=== PATIENT | female | born 1950 | race Caucasian/White ===

== ENCOUNTER 2021-03-04 14:17 | Day surgery (SDC) | payer MEDICARE, BC ==
[2021-03-02 16:21] VITALS: BMI 23.0
[~2021-03-04 14:17] MED LIST: CIPROFLOXACIN/DEXTROSE PMX 400 MG in DEXTROSE/WATER 1 200ML.BAG IVPB PRN; DEXAMETHASONE SOD PHOSPHATE 4 MG/ML 1 ML VIAL IV ONE; GENTAMICIN 80 MG in SODIUM CHLORIDE 0.9% 100 ML IVPB PRN; HYDROmorphone 0.5 MG/0.5 ML SYRINGE IVP PRN; LACTATED RINGERS 1,000 ML IV SCH; MIDAZOLAM 2 MG/2 ML VIAL IV PRN; ONDANSETRON 4 MG/2 ML VIAL IVP ONE
--- NOTE | 2021-03-04 14:54 | XR ---
EXAMINATION TYPE: XR KUB DATE OF EXAM: 03/04/2021 COMPARISON: None HISTORY: Kidney stones TECHNIQUE: AP supine abdomen FINDINGS: Postsurgical changes are in the right upper quadrant. Nonspecific bowel gas is present. Pso as margins are normal. Organomegaly is not evident. Vertebroplasty is present at T11. There are coupl e of calcifications in the upper lateral pelvis bilaterally. Additional calcifications are not readil y apparent. IMPRESSION: 1. Nonspecific calcifications are within the lateral pelvis. 2. Mild fecal debris. 3. Nonspecific abdomen
[2021-03-04 15:15] LABS: HCT 38.4 % (34.0-46.0); MCH 35.3 pg (25.0-35.0); MCHC 36.5 g/dL (31.0-37.0); MCV 96.7 fL (80.0-100.0); Mean Platelet Volume 6.8; Platelet Count 289 k/uL (150-450); Poikilocytosis Slight; RBC 3.97 m/uL (3.80-5.40); RDW 15.5 % (11.5-15.5); WBC 10.3 k/uL (3.8-10.6)
[2021-03-04 15:49] LABS: Potassium 4.8 mmol/L (3.5-5.1)
--- NOTE | 2021-03-04 17:10 | P.HPIHPCON ---
History of Present Illness H&P Date: 03/04/21 Chief Complaint: right ureteral stone This is 71-year-old female history of a 5 mm right-sided proximal stone, multiple nonobstructing stone. She symptomatic from her stone, option of ESWL versus ureteroscopy were discussed with her. She went to proceed with right- sided ureteroscopy. Discussed the risk which includes but not limited to bleeding, infection, injury to ureter, she understood all the risk and agreed to proceed Consent for Procedure: I have explained the operation/procedure to the patient, including the risks, benefits, side effects, alternative therapies (including not receiving the proposed treatment or service), the likelihood of the patient achieving his/her goals, and potential recuperation problems for the procedure/sedation/analgesia, as well as any blood products, if indicated. I also explained to the patient the risks, benefits and side effects of the alternatives, as well as the risks related to not receiving the proposed procedure, care, treatment, or services. Past Medical History Past Medical History: GERD/Reflux, Hyperlipidemia, Rheumatoid Arthritis (RA) Additional Past Medical History / Comment(s): kidney stones, History of Any Multi-Drug Resistant Organisms: None Reported Past Surgical History: Cholecystectomy, Orthopedic Surgery Additional Past Surgical History / Comment(s): rt elbow with pins Past Anesthesia/Blood Transfusion Reactions: Motion Sickness, Postoperative Nausea & Vomiting (PONV) Additional Past Anesthesia/Blood Transfusion Reaction / Comment(s): nauseous after colonoscopies Smoking Status: Former smoker - Past Family History Mother Family Medical History: No Reported History Medications and Allergies Home Medications Medication Instructions Recorded Confirmed Type Cannabidiol (Cbd) [Epidiolex] 1 dose TOPICAL DAILY PRN 03/02/21 03/02/21 History Esomeprazole Magnesium [NexIUM] 40 mg PO DAILY 03/02/21 03/02/21 History Hydroxychloroquine Sulfate 200 mg PO BID 03/02/21 03/02/21 History [Plaquenil] Potassium Chloride 10 meq PO DAILY 03/02/21 03/02/21 History Prolia (Unknown Dose) 1 dose IM Q6M 03/02/21 History Rosuvastatin Calcium 5 mg PO HS 03/02/21 03/02/21 History hydroCHLOROthiazide [Hydrodiuril] 25 mg PO DAILY 03/02/21 03/02/21 History metHOTREXate sodium [Methotrexate] 6 tab PO MO 03/02/21 03/02/21 History Allergies Allergy/AdvReac Type Severity Reaction Status Date / Time Penicillins Allergy Rash/Hives Verified 03/02/21 16:09 Surgical - Exam Vital Signs Temp Pulse Resp BP Pulse Ox 98.3 F 90 17 160/74 100 03/04/21 15:02 03/04/21 15:02 03/04/21 15:02 03/04/21 15:02 03/04/21 15:02 Results - Labs 03/04/21 15:07 03/04/21 15:07 Abnormal Lab Results - Last 24 Hours (Table) 03/04/21 03/04/21 Range/Units 15:07 15:07 MCH 35.3 H (25.0-35.0) pg Sodium 135 L (137-145) mmol/L BUN 23 H (7-17) mg/dL Diabetes panel 03/04/21 Range/Units 15:07 Sodium 135 L (137-145) mmol/L Potassium 4.8 (3.5-5.1) mmol/L Chloride 102 (98-107) mmol/L Carbon Dioxide 23 (22-30) mmol/L BUN 23 H (7-17) mg/dL Creatinine 0.81 (0.52-1.04) mg/dL Glucose 99 (74-99) mg/dL Calcium 9.0 (8.4-10.2) mg/dL Calcium panel 03/04/21 Range/Units 15:07 Calcium 9.0 (8.4-10.2) mg/dL Pituitary panel 03/04/21 Range/Units 15:07 Sodium 135 L (137-145) mmol/L Potassium 4.8 (3.5-5.1) mmol/L Chloride 102 (98-107) mmol/L Carbon Dioxide 23 (22-30) mmol/L BUN 23 H (7-17) mg/dL Creatinine 0.81 (0.52-1.04) mg/dL Glucose 99 (74-99) mg/dL Calcium 9.0 (8.4-10.2) mg/dL Adrenal panel 03/04/21 Range/Units 15:07 Sodium 135 L (137-145) mmol/L Potassium 4.8 (3.5-5.1) mmol/L Chloride 102 (98-107) mmol/L Carbon Dioxide 23 (22-30) mmol/L BUN 23 H (7-17) mg/dL Creatinine 0.81 (0.52-1.04) mg/dL Glucose 99 (74-99) mg/dL Calcium 9.0 (8.4-10.2) mg/dL
[2021-03-04] MEDS ORDERED: MIDAZOLAM 2 MG/2 ML VIAL ONE (17:30)
[2021-03-04] MEDS ORDERED: LIDOCAINE 1% INJ 10MG/ML (20 ML MDV) ONE (17:30)
[2021-03-04] MEDS ORDERED: PROPOFOL 10 MG/ML 20 ML VIAL IV ONE (17:30)
[2021-03-04] MEDS ORDERED: fentaNYL (PF) 50 MCG/ML 2 ML AMP ONE (17:30)
[2021-03-04] MEDS ORDERED: IOPAMIDOL-370 50ML BTL IRRIGATION ONE (17:59)
--- NOTE | 2021-03-04 18:34 | P.OP ---
Date of Procedure: 03/04/21 Preoperative Diagnosis: Right-sided renal, ureteral stone Postoperative Diagnosis: Same Procedure(s) Performed: Cystoscopy, right ureteroscopy, holmium laser lithotripsy, stone basketing and stent insertion Implants: None Anesthesia: ZAHRAA Surgeon: David Plaza Estimated Blood Loss (ml): 1 Pathology: other (right ureteral stne) Condition: stable Disposition: PACU Indications for Procedure: This is 71-year-old female history of a 5 mm right-sided proximal stone, multiple nonobstructing stone. She symptomatic from her stone, option of ESWL versus ureteroscopy were discussed with her. She went to proceed with right- sided ureteroscopy. Discussed the risk which includes but not limited to bleeding, infection, injury to ureter, she understood all the risk and agreed to proceed Operative Findings: Right-sided proximal stone, additional stone in the upper pole, an additional stone in the lower pole Description of Procedure: Patient was brought to the operating room, general anesthesia was induced. She was prepped and draped in sterile fashion and placed in dorsal lithotomy position. Cystoscopy fitted with a 21-Occitan sheath was inserted per urethra, cystoscopy was performed which showed no abnormality within the bladder. Attention was then carried to the right ureteral orifice which was intubated with an open-ended catheter, retrograde pyelogram was performed which showed filling defect in the proximal ureter with mild hydronephrosis. At this time a semirigid ureteroscope was inserted and advanced up to the proximal ureter, the stone was visualized at the proximal ureter , but a good angle of the obtained to fragment the stone. At this time a wire was advanced through the semirigid ureteroscope and the semirigid ureteroscope was withdrawn with the wire in place. Next a ureteral access sheath was passed over the wire under fluoroscopy into the proximal ureter. The flexible ureteroscope was inserted through the access sheath, the proximal ureteral stone was fragmented using the holmium laser, stone fragments were removed using stone basket. 2 additional stones were seen within the upper and one in the lower pole that were fragmented and removed using the stone basket. Repeat renoscopy showed no sizable fragments or injury to the kidney. Pullback ureteroscopy was performed showed no evidence of ureteral edema or injury to the ureter, thus a stent was not placed. The bladder was emptied at the end of the case. Patient tolerated procedure well was taken to PACU in stable condition
[2021-03-04 18:40] VITALS: RESP 16; TEMP 98
[2021-03-04] MEDS ORDERED: ONDANSETRON 4 MG/2 ML VIAL ONE (19:32)
[2021-03-04] MEDS ORDERED: ONDANSETRON 4 MG/2 ML VIAL IVP ONE (19:36)
[2021-03-04] MEDS ORDERED: DEXAMETHASONE SOD PHOSPHATE 4 MG/ML 1 ML VIAL IVP ONE (20:45)
[2021-03-04] MEDS ORDERED: SCOPOLAMINE 1.5MG/72HR PATCH TRANSDERM ONE (20:45)
[2021-03-04] MEDS ORDERED: KETOROLAC 15 MG/ML 1 ML VIAL IVP ONE (20:45)
[2021-03-04] MEDS ORDERED: KETOROLAC 15 MG/ML 1 ML VIAL ONE (20:46)
[2021-03-04 20:58] VITALS: BP 140/66; PULSE 86
--- NOTE | 2021-03-05 09:19 | FL ---
Fluoroscopy History: R RENAL CALC 26 sec fl .
== END 2021-03-04 21:18 | disposition home or self-care (01) ==
LOC: OR 14:17
PROVIDERS: ATTEND Urology
DX: N20.2 Calculus of kidney with calculus of ureter (principal); E78.5 Hyperlipidemia, unspecified; M06.9 Rheumatoid arthritis, unspecified; K21.9 Gastro-esophageal reflux disease without esophagitis; Z79.899 Other long term (current) drug therapy
CPT/HCPCS: 52356; 80048; 85027; 82365; 74018; C1758; C1769; J2250; J1100; J2405; J2001; J3010; J0744; J1580; J1885; J2704; J1170; Q9967

== ENCOUNTER 2022-01-19 05:58 | Emergency (ER) | payer MEDICARE, BC ==
[2022-01-19] MEDS ORDERED: HYDROmorphone 0.5 MG/0.5 ML SYRINGE IVP STA (06:23)
[2022-01-19] MEDS ORDERED: SODIUM CHLORIDE 0.9% 1,000 ML IV STA (06:23)
[2022-01-19] MEDS ORDERED: ONDANSETRON 4 MG/2 ML VIAL IVP STA (06:23)
[2022-01-19] MEDS ORDERED: KETOROLAC 15 MG/ML 1 ML VIAL IVP STA (06:23)
--- NOTE | 2022-01-19 06:40 | ED ---
Abdominal Pain HPI - General Chief Complaint: Abdominal Pain Stated Complaint: Abd Pain Time Seen by Provider: 01/19/22 06:14 Source: patient, family, RN notes reviewed Mode of arrival: wheelchair Limitations: no limitations - History of Present Illness Initial Comments: This is a 71-year-old female who presents to the emergency department for abdominal pain. She was hospitalized from 01/08 through 01/10 in [place] for diverticulitis. She was discharged on a ten-day course of Cipro and Flagyl, which she is scheduled to finish tomorrow. She does currently live in [place], but has a cottage in [place], which is why she is here. States th at ever since she left, she never gotten fully better. She continues to have RLQ abdominal pain, nausea, vomiting, and chills. Her stools are described as loose, however she is not having what she would consider diarrhea. CT abd/pelvis 01/08 - acute sigmoid diverticulitis with a 1.7cm focus of air along the superior margin of the inflamed sigmoid colon in right presacral region. Air in distended diverticulum vs contained perforation. No drainable fluid collection. Denies any sore throat, cough, dyspnea, chest pain, palpitations, diarrhea, back pain, or headaches. MD Complaint: abdominal pain Onset/Timin -: days(s) Location: LLQ, RLQ Context: other (diverticulitis) Associated Symptoms: nausea, vomiting, chills - Related Data Home Medications Medication Instructions Recorded Confirmed Cannabidiol (Cbd) [Epidiolex] 1 dose TOPICAL DAILY PRN 03/02/21 03/02/21 Esomeprazole Magnesium [NexIUM] 40 mg PO DAILY 03/02/21 03/02/21 Hydroxychloroquine Sulfate 200 mg PO BID 03/02/21 03/02/21 [Plaquenil] Potassium Chloride 10 meq PO DAILY 03/02/21 03/02/21 Prolia (Unknown Dose) 1 dose IM Q6M 03/02/21 Rosuvastatin Calcium 5 mg PO HS 03/02/21 03/02/21 hydroCHLOROthiazide [Hydrodiuril] 25 mg PO DAILY 03/02/21 03/02/21 metHOTREXate sodium [Methotrexate] 6 tab PO MO 03/02/21 03/02/21 Previous Rx's Medication Instructions Recorded Ibuprofen 600 mg PO Q8H PRN #20 tab 03/04/21 Ondansetron Odt [Zofran Odt] 4 mg PO Q8HR PRN #20 tab 01/19/22 Potassium Chloride [Potassium 20 meq PO QAM 3 Days #6 tab 01/19/22 Chloride ER] Allergies Allergy/AdvReac Type Severity Reaction Status Date / Time Penicillins Allergy Rash/Hives Verified 01/19/22 06:05 Review of Systems ROS Statement: Those systems with pertinent positive or pertinent negative responses have been documented in the HPI. ROS Other: All systems not noted in ROS Statement are negative. Past Medical History Past Medical History: GERD/Reflux, Hyperlipidemia, Rheumatoid Arthritis (RA) Additional Past Medical History / Comment(s): kidney stones, diverticulitis History of Any Multi-Drug Resistant Organisms: None Reported Past Surgical History: Cholecystectomy, Orthopedic Surgery Additional Past Surgical History / Comment(s): rt elbow with pins Past Anesthesia/Blood Transfusion Reactions: Motion Sickness, Postoperative Nausea & Vomiting (PONV) Additional Past Anesthesia/Blood Transfusion Reaction / Comment(s): nauseous after colonoscopies Past Psychological History: No Psychological Hx Reported Smoking Status: Former smoker Past Alcohol Use History: None Reported Past Drug Use History: None Reported - Past Family History Mother Family Medical History: No Reported History General Exam Limitations: no limitations General appearance: alert, in distress Head exam: Present: atraumatic, normocephalic, normal inspection Respiratory exam: Present: normal lung sounds bilaterally. Absent: respiratory distress, wheezes, rales, rhonchi, stridor Cardiovascular Exam: Present: regular rate, normal rhythm, normal heart sounds. Absent: systolic murmur, diastolic murmur, rubs, gallop, clicks GI/Abdominal exam: Present: soft, tenderness (LLQ and RLQ), hyperactive bowel sounds. Absent: distended, guarding, rebound, rigid Neurological exam: Present: alert, oriented X3, CN II-XII intact Psychiatric exam: Present: normal affect, normal mood Skin exam: Present: warm, dry, intact, normal color. Absent: rash Course Vital Signs 01/19/22 01/19/22 01/19/22 06:05 08:33 08:45 Temperature 97.2 F L Pulse Rate 106 H 89 Respiratory 16 18 Rate Blood Pressure 115/57 105/65 O2 Sat by Pulse 98 94 L Oximetry Medical Decision Making - Medical Decision Making This is a 71-year-old female who presents to the emergency department for diverticulitis. Patient brought in her records from the prior hospitalization in [place], which were thoroughly reviewed. Repeat lab work reveals that the previous leukocytosis has resolved. Lab work is consistent with dehydration, she was given a liter bolus of normal saline. Potassium was also low at 2.8, and she was given 40 mEq of K-dur. Computed tomography scan of the abdomen and pelvis reveals improving acute uncomplicated sigmoid diverticulitis when compared with prior scan from 01/08. Shared decision-making to place with the patient. We discussed that given her dehydration and hypokalemia, we can admit her for observation and rehydration. However, if she feels like she is better, we can discharge her home. Patient states that she feels significantly improved and requests discharge home. Prescription for Zofran sent to the pharmacy as well as 3 days worth of potassium. Advised that she remain very well-hydrated and increase her fiber intake. She'll follow up with gastroenterology as advised when she returns to [place]. Strict return parameters discussed. Return precautions reviewed in depth, the patient is instructed to return to the emergency department with any new, worsening, or concerning symptoms. Patient verbalized understanding. This case was discussed in detail with the attending ED physician. Presentation, findings, and treatment plan discussed in detail as well. - Lab Data Result diagrams: 01/19/22 06:38 01/19/22 06:38 Lab Results 01/19/22 01/19/22 01/19/22 Range/Units 06:38 06:38 06:38 WBC 10.2 (3.8-10.6) k/uL RBC 4.30 (3.80-5.40) m/uL Hgb 13.8 (11.4-16.0) gm/dL Hct 40.7 (34.0-46.0) % MCV 94.6 (80.0-100.0) fL MCH 32.1 (25.0-35.0) pg MCHC 33.9 (31.0-37.0) g/dL RDW 14.5 (11.5-15.5) % Plt Count 353 (150-450) k/uL MPV 7.0 Neutrophils % 76 % Lymphocytes % 16 % Monocytes % 5 % Eosinophils % 1 % Basophils % 1 % Neutrophils # 7.7 (1.3-7.7) k/uL Lymphocytes # 1.6 (1.0-4.8) k/uL Monocytes # 0.5 (0-1.0) k/uL Eosinophils # 0.1 (0-0.7) k/uL Basophils # 0.1 (0-0.2) k/uL Sodium 129 L (137-145) mmol/L Potassium 2.8 L (3.5-5.1) mmol/L Chloride 95 L (98-107) mmol/L Carbon Dioxide 26 (22-30) mmol/L Anion Gap 8 mmol/L BUN 23 H (7-17) mg/dL Creatinine 0.79 (0.52-1.04) mg/dL Est GFR (CKD-EPI)AfAm 88 (>60 ml/min/1.73 sqM) Est GFR (CKD-EPI)NonAf 76 (>60 ml/min/1.73 sqM) Glucose 138 H (74-99) mg/dL Plasma Lactic Acid Harjinder 2.1 H* (0.7-2.0) mmol/L Calcium 8.9 (8.4-10.2) mg/dL Total Bilirubin 0.8 (0.2-1.3) mg/dL AST 33 (14-36) U/L ALT 45 H (4-34) U/L Alkaline Phosphatase 50 (38-126) U/L Total Protein 5.6 L (6.3-8.2) g/dL Albumin 3.4 L (3.5-5.0) g/dL Amylase 75 (30-110) U/L Lipase 121 (23-300) U/L - Radiology Data Radiology results: report reviewed, image reviewed Disposition Clinical Impression: Diverticulitis, Dehydration Disposition: HOME SELF-CARE Instructions (If sedation given, give patient instructions): Diverticulitis (ED) Additional Instructions: Return to the emergency department with any new, worsening, or concerning symptoms. Make sure that you remain well-hydrated. Take the Zofran up to every 8 hours as needed for nausea and vomiting and take the potassium each day for 3 days. Prescriptions: Potassium Chloride [Potassium Chloride ER] 20 meq PO QAM 3 Days #6 tab Ondansetron Odt [Zofran Odt] 4 mg PO Q8HR PRN #20 tab PRN Reason: Nausea And Vomiting Is patient prescribed a controlled substance at d/c from ED?: No Referrals: Bruno Fry MD [Primary Care Provider] - 1-2 days
[2022-01-19 06:57] LABS: Basophils # (A) 0.1 k/uL (0-0.2); Basophils % (A) 1 %; Eosinophils # (A) 0.1 k/uL (0-0.7); Eosinophils % (A) 1 %; HCT 40.7 % (34.0-46.0); HGB 13.8 gm/dL (11.4-16.0); Lymphocytes # (A) 1.6 k/uL (1.0-4.8); Lymphocytes % (A) 16 %; MCH 32.1 pg (25.0-35.0); MCHC 33.9 g/dL (31.0-37.0); MCV 94.6 fL (80.0-100.0); Monocytes # (A) 0.5 k/uL (0-1.0); Monocytes % (A) 5 %; Neutrophils # (A) 7.7 k/uL (1.3-7.7); Neutrophils % (A) 76 %; Platelet Count 353 k/uL (150-450); RDW 14.5 % (11.5-15.5); WBC 10.2 k/uL (3.8-10.6)
[2022-01-19 07:10] LABS: Albumin 3.4 g/dL (3.5-5.0); Calcium 8.9 mg/dL (8.4-10.2); Potassium 2.8 mmol/L (3.5-5.1); Total Bilirubin 0.8 mg/dL (0.2-1.3); Total Protein 5.6 g/dL (6.3-8.2)
[2022-01-19] MEDS ORDERED: POTASSIUM CHLORIDE ER 20 MEQ TAB.ER PO STA (07:12)
--- NOTE | 2022-01-19 08:13 | CT ---
EXAMINATION TYPE: CT abdomen pelvis w con CT DLP: 730.7 mGycm, Automated exposure control for dose reduction was used. DATE OF EXAM: 01/19/2022 7:47 AM COMPARISON: 01/08/2022. CLINICAL INDICATION:Female, 71 years old with history of Worsening LLQ abdominal pain, known divertic ulitis; Worsening LLQ pain, known diverticulitis TECHNIQUE: Axial CT of the abdomen and pelvis . Sagittal and coronal reformats were created on a [employer] workstation. Contrast used:100 ml mL of Isovue 300 with IV Contrast, Oral contrast used: without Oral Contrast FINDINGS: LOWER CHEST: Small hiatal hernia. ABDOMEN LIVER: Diffusely hypoattenuating parenchyma. GALLBLADDER AND BILE DUCTS: The gallbladder is surgically absent. PANCREAS: Unremarkable. SPLEEN: Unremarkable. ADRENAL GLANDS: Unremarkable. KIDNEYS AND URETERS: No evidence of hydronephrosis or renal calculus. The ureters are unremarkable. PELVIS BLADDER: Unremarkable REPRODUCTIVE: Unremarkable. ABDOMEN & PELVIS STOMACH AND BOWEL: Moderate stool burden throughout the colon. There are few scattered clonic diverti cula with inflammatory changes best appreciated in the low abdomen around diverticula on the right. F ocus of gas within the posterior right pelvis could represent free air versus dilated diverticula. Th is is not significantly changed from prior on 01/08/2022 infiltrate was dilated diverticula. No organi zing fluid collections identified. No evidence of bowel obstruction. PERITONEUM: No evidence of pneumoperitoneum or free fluid. VASCULATURE: Mild atherosclerotic calcifications are present throughout the abdominal aorta and its b ranches. No evidence of aortic aneurysm. MUSCULOSKELETAL: No acute osseous abnormalities. Mild disc degeneration changes are present throughou t the thoracolumbar spine. Multiple remote appearing right rib fractures. LYMPH NODES: No gross evidence for lymphadenopathy. SOFT TISSUE/ABDOMINAL WALL: Unremarkable IMPRESSION: 1. Improving uncomplicated sigmoid colon diverticulitis when compared to prior from outside instituti on 01/08/2022. No evidence of organizing fluid collection. 2. Hepatic steatosis. 3. Small hiatal hernia.
[2022-01-19] MEDS ORDERED: ONDANSETRON 4 MG ODT STARTER PACK 2 TAB BTL PO STA (08:32)
[2022-01-19 08:36] VITALS: BP 105/65; PULSE 89; RESP 18
[2022-01-19 08:46] VITALS: TEMP 97.2
== END 2022-01-19 08:46 | disposition home or self-care (01) ==
LOC: EC 05:58
DX: K57.32 Diverticulitis of large intestine without perforation or abscess without bleeding (principal); E86.0 Dehydration; K21.9 Gastro-esophageal reflux disease without esophagitis; E78.5 Hyperlipidemia, unspecified; M06.9 Rheumatoid arthritis, unspecified; Z87.891 Personal history of nicotine dependence; Z88.0 Allergy status to penicillin; Z79.899 Other long term (current) drug therapy
CPT/HCPCS: 36415; 80053; 82150; 83605; 83690; 85025; 74177; 99284; 96374; 96375; 96361; J2405; J1885; S0119; J1170; Q9967

== ENCOUNTER 2022-02-03 22:46 | Observation (INO) | payer MEDICARE, BC ==
[2022-02-04] MEDS ORDERED: MORPHINE SULFATE 4 MG/ML SYRINGE IV STA (01:04)
[2022-02-04] MEDS ORDERED: SODIUM CHLORIDE 0.9% 500 ML 500 ML IV STA (01:05)
[2022-02-04 01:42] LABS: Basophils % (A) 0 %; Eosinophils # (A) 0.1 k/uL (0-0.7); Eosinophils % (A) 1 %; HCT 35.6 % (34.0-46.0); Lymphocytes # (A) 1.8 k/uL (1.0-4.8); Lymphocytes % (A) 23 %; MCHC 33.6 g/dL (31.0-37.0); MCV 95.2 fL (80.0-100.0); Mean Platelet Volume 7.1; Monocytes # (A) 0.5 k/uL (0-1.0); Monocytes % (A) 6 %; Neutrophils # (A) 5.3 k/uL (1.3-7.7); Neutrophils % (A) 67 %; Platelet Count 291 k/uL (150-450); RBC 3.74 m/uL (3.80-5.40); RDW 14.5 % (11.5-15.5); WBC 7.9 k/uL (3.8-10.6)
[2022-02-04 01:51] LABS: ALT 37 U/L (4-34); AST 32 U/L (14-36); African American GFR (CKD) >90 (>60 ml/min/1.73 sqM); Albumin 3.4 g/dL (3.5-5.0); Alkaline Phosphatase 40 U/L (38-126); Amylase 59 U/L (30-110); Anion Gap 6 mmol/L; Blood Urea Nitrogen 38 mg/dL (7-17); Calcium 8.6 mg/dL (8.4-10.2); Carbon Dioxide 26 mmol/L (22-30); Chloride 100 mmol/L (98-107); Glucose 118 mg/dL (74-99); Lipase 86 U/L (23-300); Non-African American GFR(CKD) >90 (>60 ml/min/1.73 sqM); Potassium 2.8 mmol/L (3.5-5.1); Sodium 132 mmol/L (137-145); Total Bilirubin 0.2 mg/dL (0.2-1.3); Total Protein 5.6 g/dL (6.3-8.2)
[2022-02-04 02:35] LABS: Appearance,Urine Clear (Clear); Bilirubin,Urine Negative (Negative); Blood,Urine Negative (Negative); Color,Urine Light Yellow; Glucose,Urine (UA) Negative (Negative); Hyaline Casts,Urine 3 /lpf (0-2); Ketones,Urine Negative (Negative); Leukocyte Esterase,Urine Small (Negative); Mucus,Urine Rare /hpf; Nitrite,Urine Negative (Negative); Protein,Urine Negative (Negative); RBC,Urine <1 /hpf (0-5); Specific Gravity,Urine 1.011 (1.001-1.035); Squamous Epithelial Cell,Urine <1 /hpf (0-4); Urobilinogen,Urine <2.0 mg/dL (<2.0); WBC,Urine 2 /hpf (0-5)
--- NOTE | 2022-02-04 03:16 | CT ---
EXAMINATION TYPE: CT abdomen pelvis w con DATE OF EXAM: 02/04/2022 COMPARISON: 01/19/2022 HISTORY: RLQ pain CT DLP: 692.9 mGycm Automated exposure control for dose reduction was used. CONTRAST: Performed with IV Contrast, patient injected with 100 mL of Isovue 300. Images obtained from the diaphragm to the floor the pelvis with the IV contrast. The lung bases are clear. No pleural effusion. Heart size is normal. No pericardial effusion. There i s small hiatal hernia. Stomach is intact. Liver spleen pancreas appear intact. The bowel gas or not d ilated. Gallbladder appears absent. There is no adrenal mass. Kidneys show satisfactory contrast opacification. There is no hydronephrosi s. Ureters are not dilated. There is no retroperitoneal adenopathy. Bladder distends smoothly. There is no inguinal hernia. No free fluid in the pelvis. There is no mesenteric edema. No ascites or free air. There is no bowel obstruction. There are multip le sigmoid diverticula. No diverticulitis. Appendix appears normal. The lumbar vertebrae have normal alignment. There is depression of the superior endplates of L4 and L 3 L2 L1 T12 T11 T10. There is T9 and T8 anterior wedging. There is vertebroplasty at T11 and T10 and T9. The bony pelvis is intact. The hip joints are intact. IMPRESSION: Extensive colonic diverticulosis without diverticulitis. Normal appendix. No bowel obstruction. No re nal mass or obstruction. No adverse change compared to old exam.
[2022-02-04] MEDS ORDERED: ONDANSETRON 4 MG/2 ML VIAL IVP PRN (05:12)
[2022-02-04] MEDS ORDERED: ACETAMINOPHEN TAB 325 MG TAB PO PRN (05:12)
[2022-02-04] MEDS ORDERED: MORPHINE SULFATE 4 MG/ML SYRINGE IV PRN (05:12)
[2022-02-04] MEDS ORDERED: NALOXONE 0.4 MG/ML 1 ML VIAL IV PRN (05:12)
--- NOTE | 2022-02-04 07:39 | ED ---
Abdominal Pain HPI - General Chief Complaint: Abdominal Pain Stated Complaint: lower right abd pain; hx of diverticulitis Time Seen by Provider: 02/03/22 23:53 Source: patient, family Mode of arrival: ambulatory - History of Present Illness Initial Comments: This patient is 72-year-old woman who states she has history of diverticulitis who presents with complaint of right upper quadrant pain that she states is very similar to previous episode of diverticulitis. She states that approximately a month ago she was in [facility] and she had pain, was told she had diverticulitis, and states she was in the hospital on antibiotics. She returns to [place] 3 weeks ago. The pain is been going on for over a week. The patient had been seen here, and was told she has diverticulitis. She states she was given course of antibiotics. The patient states that the pain recurred about 4 days ago. She actually saw her primary physician Dr. Fry who saw her and told her if the pain had not improved or if it was any worse she should see the ER. She states that the pain did continue to worsen so she comes here to be seen. She has not noted fever or chills. No vomiting or diarrhea. She has not noted change in bowel movements or urination. MD Complaint: abdominal pain -: days(s) Location: RUQ Radiation: none Migration to: no migration Severity: moderate Quality: cramping, aching Consistency: constant Improves With: nothing Worsens With: nothing Associated Symptoms: denies other symptoms - Related Data Home Medications Medication Instructions Recorded Confirmed Hydroxychloroquine Sulfate 200 mg PO BID 03/02/21 02/04/22 [Plaquenil] Rosuvastatin Calcium 5 mg PO HS 03/02/21 02/04/22 metHOTREXate sodium [Methotrexate] 15 mg PO MO 03/02/21 02/04/22 Ibuprofen [Motrin Ib] 400 mg PO Q8H PRN 02/04/22 02/04/22 hydroCHLOROthiazide [Hydrodiuril] 25 mg PO DAILY 02/04/22 02/04/22 Previous Rx's Medication Instructions Recorded Ondansetron Odt [Zofran ODT] 4 mg PO Q8HR PRN #20 tab 01/19/22 Acetaminophen Tab [Tylenol] 650 mg PO Q6HR PRN #30 tab 02/05/22 Dicyclomine [Bentyl] 20 mg PO TID PRN #20 tab 02/05/22 Famotidine [Pepcid] 20 mg PO BID #60 tab 02/05/22 Levofloxacin [Levaquin] 750 mg PO DAILY #7 tab 02/05/22 Allergies Allergy/AdvReac Type Severity Reaction Status Date / Time Penicillins Allergy Rash/Hives Verified 02/04/22 13:24 Review of Systems ROS Statement: Those systems with pertinent positive or pertinent negative responses have been documented in the HPI. ROS Other: All systems not noted in ROS Statement are negative. Constitutional: Denies: fever, chills Respiratory: Denies: cough, dyspnea Cardiovascular: Denies: chest pain, palpitations Gastrointestinal: Reports: abdominal pain. Denies: nausea, vomiting, diarrhea, melena, hematochezia Genitourinary: Denies: dysuria, hematuria Musculoskeletal: Denies: back pain Skin: Denies: rash Neurological: Denies: headache, weakness Past Medical History Past Medical History: GERD/Reflux, Hyperlipidemia, Rheumatoid Arthritis (RA) Additional Past Medical History / Comment(s): kidney stones, diverticulitis History of Any Multi-Drug Resistant Organisms: None Reported Past Surgical History: Cholecystectomy, Orthopedic Surgery Additional Past Surgical History / Comment(s): rt elbow with pins Past Anesthesia/Blood Transfusion Reactions: Motion Sickness, Postoperative Nausea & Vomiting (PONV) Additional Past Anesthesia/Blood Transfusion Reaction / Comment(s): nauseous after colonoscopies Past Psychological History: No Psychological Hx Reported Smoking Status: Former smoker Past Alcohol Use History: None Reported Past Drug Use History: None Reported - Past Family History Mother Family Medical History: No Reported History General Exam General appearance: alert, in no apparent distress Head exam: Present: atraumatic, normocephalic Eye exam: Present: normal appearance. Absent: scleral icterus, conjunctival injection Neck exam: Present: normal inspection Respiratory exam: Present: normal lung sounds bilaterally. Absent: respiratory distress, wheezes, rales, rhonchi, stridor Cardiovascular Exam: Present: regular rate, normal rhythm, normal heart sounds. Absent: systolic murmur, diastolic murmur, rubs, gallop GI/Abdominal exam: Present: soft. Absent: distended, tenderness, guarding, rebound, rigid, mass, pulsatile mass, hernia Extremities exam: Present: normal inspection, normal capillary refill. Absent: pedal edema, calf tenderness Back exam: Present: normal inspection. Absent: CVA tenderness (R), CVA tenderness (L) Neurological exam: Present: alert Psychiatric exam: Present: normal affect Skin exam: Present: warm, dry, intact, normal color. Absent: rash Course Vital Signs 02/03/22 02/04/22 02/04/22 23:37 02:10 03:21 Temperature 97.6 F Pulse Rate 98 84 Pulse Rate [ Pulse Oximetery ] Respiratory 18 16 16 Rate Blood Pressure 118/70 129/65 124/65 Blood Pressure [Right Arm] O2 Sat by Pulse 98 97 Oximetry 02/04/22 02/04/22 06:32 08:00 Temperature 98.9 F 97.6 F Pulse Rate 85 Pulse Rate [ 106 H Pulse Oximetery ] Respiratory 14 16 Rate Blood Pressure 107/55 Blood Pressure 153/77 [Right Arm] O2 Sat by Pulse 94 L 96 Oximetry Medical Decision Making - Lab Data Result diagrams: 02/05/22 13:07 02/05/22 13:07 Lab Results 02/04/22 02/04/22 02/04/22 Range/Units 01:27 01:27 01:27 WBC 7.9 (3.8-10.6) k/uL RBC 3.74 L (3.80-5.40) m/uL Hgb 12.0 (11.4-16.0) gm/dL Hct 35.6 (34.0-46.0) % MCV 95.2 (80.0-100.0) fL MCH 32.0 (25.0-35.0) pg MCHC 33.6 (31.0-37.0) g/dL RDW 14.5 (11.5-15.5) % Plt Count 291 (150-450) k/uL MPV 7.1 Neutrophils % 67 % Lymphocytes % 23 % Monocytes % 6 % Eosinophils % 1 % Basophils % 0 % Neutrophils # 5.3 (1.3-7.7) k/uL Lymphocytes # 1.8 (1.0-4.8) k/uL Monocytes # 0.5 (0-1.0) k/uL Eosinophils # 0.1 (0-0.7) k/uL Basophils # 0.0 (0-0.2) k/uL Sodium 132 L (137-145) mmol/L Potassium 2.8 L (3.5-5.1) mmol/L Chloride 100 (98-107) mmol/L Carbon Dioxide 26 (22-30) mmol/L Anion Gap 6 mmol/L BUN 38 H (7-17) mg/dL Creatinine 0.58 (0.52-1.04) mg/dL Est GFR (CKD-EPI)AfAm >90 (>60 ml/min/1.73 sqM) Est GFR (CKD-EPI)NonAf >90 (>60 ml/min/1.73 sqM) Glucose 118 H (74-99) mg/dL Plasma Lactic Acid Harjinder 1.0 (0.7-2.0) mmol/L Calcium 8.6 (8.4-10.2) mg/dL Total Bilirubin 0.2 (0.2-1.3) mg/dL AST 32 (14-36) U/L ALT 37 H (4-34) U/L Alkaline Phosphatase 40 (38-126) U/L Troponin I (0.000-0.034) ng/mL Total Protein 5.6 L (6.3-8.2) g/dL Albumin 3.4 L (3.5-5.0) g/dL Amylase 59 (30-110) U/L Lipase 86 (23-300) U/L Urine Color Urine Appearance (Clear) Urine pH (5.0-8.0) Ur Specific Martelle (1.001-1.035) Urine Protein (Negative) Urine Glucose (UA) (Negative) Urine Ketones (Negative) Urine Blood (Negative) Urine Nitrite (Negative) Urine Bilirubin (Negative) Urine Urobilinogen (<2.0) mg/dL Ur Leukocyte Esterase (Negative) Urine RBC (0-5) /hpf Urine WBC (0-5) /hpf Ur Squamous Epith Cells (0-4) /hpf Hyaline Casts (0-2) /lpf Urine Mucus (None) /hpf 02/04/22 02/04/22 Range/Units 01:27 02:15 WBC (3.8-10.6) k/uL RBC (3.80-5.40) m/uL Hgb (11.4-16.0) gm/dL Hct (34.0-46.0) % MCV (80.0-100.0) fL MCH (25.0-35.0) pg MCHC (31.0-37.0) g/dL RDW (11.5-15.5) % Plt Count (150-450) k/uL MPV Neutrophils % % Lymphocytes % % Monocytes % % Eosinophils % % Basophils % % Neutrophils # (1.3-7.7) k/uL Lymphocytes # (1.0-4.8) k/uL Monocytes # (0-1.0) k/uL Eosinophils # (0-0.7) k/uL Basophils # (0-0.2) k/uL Sodium (137-145) mmol/L Potassium (3.5-5.1) mmol/L Chloride (98-107) mmol/L Carbon Dioxide (22-30) mmol/L Anion Gap mmol/L BUN (7-17) mg/dL Creatinine (0.52-1.04) mg/dL Est GFR (CKD-EPI)AfAm (>60 ml/min/1.73 sqM) Est GFR (CKD-EPI)NonAf (>60 ml/min/1.73 sqM) Glucose (74-99) mg/dL Plasma Lactic Acid Harjinder (0.7-2.0) mmol/L Calcium (8.4-10.2) mg/dL Total Bilirubin (0.2-1.3) mg/dL AST (14-36) U/L ALT (4-34) U/L Alkaline Phosphatase (38-126) U/L Troponin I <0.012 (0.000-0.034) ng/mL Total Protein (6.3-8.2) g/dL Albumin (3.5-5.0) g/dL Amylase (30-110) U/L Lipase (23-300) U/L Urine Color Light Yellow Urine Appearance Clear (Clear) Urine pH 5.0 (5.0-8.0) Ur Specific Martelle 1.011 (1.001-1.035) Urine Protein Negative (Negative) Urine Glucose (UA) Negative (Negative) Urine Ketones Negative (Negative) Urine Blood Negative (Negative) Urine Nitrite Negative (Negative) Urine Bilirubin Negative (Negative) Urine Urobilinogen <2.0 (<2.0) mg/dL Ur Leukocyte Esterase Small H (Negative) Urine RBC <1 (0-5) /hpf Urine WBC 2 (0-5) /hpf Ur Squamous Epith Cells <1 (0-4) /hpf Hyaline Casts 3 H (0-2) /lpf Urine Mucus Rare H (None) /hpf Disposition Clinical Impression: Abdominal pain, Hypokalemia Disposition: ADMITTED IP TO THIS HOSP Condition: Good Is patient prescribed a controlled substance at d/c from ED?: No
[2022-02-04] MEDS ORDERED: traMADol 50 MG TAB PO PRN ×2 (10:44→19:34)
--- NOTE | 2022-02-04 10:44 | P.GSCN ---
History of Present Illness Consult date: 02/04/22 Reason for Consult: Abdominal pain History of present illness: 72-year-old female vacationing in [place] for the summer. Lives in [facility] she was hospitalized in mid December for 3 days for diverticulitis. She points to her right upper quadrant. She was discharged on oral antibiotics. Finished her antibiotics about a week or 2 ago. Since her time in [place] she has had persistent fatigue, decreased appetite, mild nausea and occasional vomiting, and mild discomfort. Only minimal pain currently. Bowel function has been improving recently. No rectal bleeding or melena. Patient had a CAT scan on 01/19 and again had a CAT scan performed earlier this morning. Patient still has a small foci of extraluminal air or air within a diverticulum at the distal sigmoid colon. There is no significant inflammatory changes there. Apparently this was present on the outside films previously as well. Denies rectal bleeding or melena. Review of Systems The patient denies any acute changes in vision or hearing, no dysphagia or odynophagia, no chest pain or shortness of breath, no dysuria or hematuria, no headache, no runny nose, no rectal bleeding or melena, no unexplained weight loss Past Medical History Past Medical History: GERD/Reflux, Hyperlipidemia, Rheumatoid Arthritis (RA) Additional Past Medical History / Comment(s): kidney stones, diverticulitis History of Any Multi-Drug Resistant Organisms: None Reported Past Surgical History: Cholecystectomy, Orthopedic Surgery Additional Past Surgical History / Comment(s): rt elbow with pins Past Anesthesia/Blood Transfusion Reactions: Motion Sickness, Postoperative Nausea & Vomiting (PONV) Additional Past Anesthesia/Blood Transfusion Reaction / Comm: nauseous after colonoscopies Past Psychological History: No Psychological Hx Reported Smoking Status: Former smoker Past Alcohol Use History: None Reported Past Drug Use History: None Reported - Past Family History Mother Family Medical History: No Reported History Medications and Allergies Home Medications Medication Instructions Recorded Confirmed Type Cannabidiol (Cbd) [Epidiolex] 1 dose TOPICAL DAILY PRN 03/02/21 03/02/21 History Esomeprazole Magnesium [NexIUM] 40 mg PO DAILY 03/02/21 03/02/21 History Hydroxychloroquine Sulfate 200 mg PO BID 03/02/21 03/02/21 History [Plaquenil] Potassium Chloride 10 meq PO DAILY 03/02/21 03/02/21 History Prolia (Unknown Dose) 1 dose IM Q6M 03/02/21 History Rosuvastatin Calcium 5 mg PO HS 03/02/21 03/02/21 History hydroCHLOROthiazide [Hydrodiuril] 25 mg PO DAILY 03/02/21 03/02/21 History metHOTREXate sodium [Methotrexate] 6 tab PO MO 03/02/21 03/02/21 History Ibuprofen 600 mg PO Q8H PRN #20 tab 03/04/21 Rx Ondansetron Odt [Zofran Odt] 4 mg PO Q8HR PRN #20 tab 01/19/22 Rx Potassium Chloride [Potassium 20 meq PO QAM 3 Days #6 tab 01/19/22 Rx Chloride ER] Allergies Allergy/AdvReac Type Severity Reaction Status Date / Time Penicillins Allergy Rash/Hives Verified 02/03/22 23:41 Surgical - Exam Vital Signs Temp Pulse Resp BP Pulse Ox 97.6 F 98 18 118/70 98 02/03/22 23:37 02/03/22 23:37 02/03/22 23:37 02/03/22 23:37 02/03/22 23:37 Physical exam: General: Well-developed, well-nourished HEENT: Normocephalic, sclerae nonicteric Abdomen: Nontender, nondistended Extremities: No edema Neuro: Alert and oriented Results - Labs 02/04/22 01:27 02/04/22 01:27 Abnormal Lab Results - Last 24 Hours (Table) 02/04/22 02/04/22 02/04/22 Range/Units 01:27 01:27 02:15 RBC 3.74 L (3.80-5.40) m/uL Sodium 132 L (137-145) mmol/L Potassium 2.8 L (3.5-5.1) mmol/L BUN 38 H (7-17) mg/dL Glucose 118 H (74-99) mg/dL ALT 37 H (4-34) U/L Total Protein 5.6 L (6.3-8.2) g/dL Albumin 3.4 L (3.5-5.0) g/dL Ur Leukocyte Esterase Small H (Negative) Hyaline Casts 3 H (0-2) /lpf Urine Mucus Rare H (None) /hpf Diabetes panel 02/04/22 Range/Units 01:27 Sodium 132 L (137-145) mmol/L Potassium 2.8 L (3.5-5.1) mmol/L Chloride 100 (98-107) mmol/L Carbon Dioxide 26 (22-30) mmol/L BUN 38 H (7-17) mg/dL Creatinine 0.58 (0.52-1.04) mg/dL Glucose 118 H (74-99) mg/dL Calcium 8.6 (8.4-10.2) mg/dL AST 32 (14-36) U/L ALT 37 H (4-34) U/L Alkaline Phosphatase 40 (38-126) U/L Total Protein 5.6 L (6.3-8.2) g/dL Albumin 3.4 L (3.5-5.0) g/dL Calcium panel 02/04/22 Range/Units 01:27 Calcium 8.6 (8.4-10.2) mg/dL Albumin 3.4 L (3.5-5.0) g/dL Pituitary panel 02/04/22 Range/Units 01:27 Sodium 132 L (137-145) mmol/L Potassium 2.8 L (3.5-5.1) mmol/L Chloride 100 (98-107) mmol/L Carbon Dioxide 26 (22-30) mmol/L BUN 38 H (7-17) mg/dL Creatinine 0.58 (0.52-1.04) mg/dL Glucose 118 H (74-99) mg/dL Calcium 8.6 (8.4-10.2) mg/dL Adrenal panel 02/04/22 Range/Units 01:27 Sodium 132 L (137-145) mmol/L Potassium 2.8 L (3.5-5.1) mmol/L Chloride 100 (98-107) mmol/L Carbon Dioxide 26 (22-30) mmol/L BUN 38 H (7-17) mg/dL Creatinine 0.58 (0.52-1.04) mg/dL Glucose 118 H (74-99) mg/dL Calcium 8.6 (8.4-10.2) mg/dL Total Bilirubin 0.2 (0.2-1.3) mg/dL AST 32 (14-36) U/L ALT 37 H (4-34) U/L Alkaline Phosphatase 40 (38-126) U/L Total Protein 5.6 L (6.3-8.2) g/dL Albumin 3.4 L (3.5-5.0) g/dL Assessment and Plan (1) Diverticulitis Narrative/Plan: 72-year-old female with history of diverticulitis. CAT scan reviewed. No significant changes from previous. She has nauseous and vomiting when I came into the room but we think that may be related to her IV pain medications. Recommend resuming liquid diet for now. We'll try to obtain records from [place]. Continue antibiotics. Minimize IV narcotic use. Will follow. Current Visit: No Status: Acute Code(s): K57.92 - DVTRCLI OF INTEST, PART UNSP, W/O PERF OR ABSCESS W/O BLEED SNOMED Code(s): 744899573
[2022-02-04] MEDS: FAMOTIDINE 20 MG TAB PO SCH ×2 (11:15→21:12)
[2022-02-04] MEDS: SODIUM CHLORIDE 0.9% 1,000 ML IV SCH ×2 (11:15→11:22)
[2022-02-04] MEDS: KETOROLAC 15 MG/ML 1 ML VIAL IVP SCH ×3 (11:21→23:43)
[2022-02-04] MEDS: LEVOFLOXACIN 500MG-D5W PMX 500 MG in DEXTROSE/WATER 1 100ML.BAG IVPB SCH (11:22)
[2022-02-04] MEDS: PANTOPRAZOLE 40 MG TABLET PO SCH (15:01)
[2022-02-04] MEDS: HYDROXYCHLOROQUINE SULFATE 200 MG TAB PO SCH ×2 (15:01→21:12)
[2022-02-04] MEDS: POTASSIUM CHLORIDE ER 20 MEQ TAB.ER PO SCH ×2 (15:01→16:43)
[2022-02-04] MEDS: LACTATED RINGERS 1,000 ML IV SCH (15:02)
--- NOTE | 2022-02-04 19:38 | P.HPIM ---
History of Present Illness H&P Date: 02/04/22 Chief Complaint: Abdominal pain This is a very pleasant 72-year-old patient, she and her are visiting here from [place]. Have according chair. In January 08 patient was admitted to the local hospital in [place] with acute diabetic colitis. For 2 days. Was discharged in 2 weeks of Flagyl. Symptoms did improve but not fully. Patient has continued to have some abdominal pain. Bowel movements have been irregular. Patient started having increasing abdominal pain. Chills. Tired rundown. Decided to come in. Computed tomography scan was unremarkable. Patient was started on IV Levaquin. Surgery was consulted. Placed on clear liquid diet. Patient is accompanied by her . No prior history of diverticulitis. Review of systems: GEN.: Tired decreased appetite chills EYES: None HEENT: None NECK: None RESPIRATORY: None CARDIOVASCULAR: None GASTROINTESTINAL: As above GENITOURINARY: None MUSCULOSKELETAL: Joint pains LYMPHATICS: None HEMATOLOGICAL: None PSYCHIATRY: None NEUROLOGICAL: None Past medical history to include: GERD, hyperlipidemia, rheumatoid arthritis, kidney stones, diverticulitis Social history: . No alcohol. Smoking and occasionally. CBD was sometimes Family history: Reviewed, noncontributory to presentation Physical examination: VITAL SIGNS: 98, 78, 16, 1 10 x 70, 97% room air GENERAL: BMI 23.6, laying in bed awake, tired. EYES: Pupils equal. Conjunctiva normal. HEENT: External appearance of nose and ears normal, oral cavity grossly normal. NECK: JVD not raised; masses not palpable. HEART: First and second heart sounds are normal; no edema. LUNGS: Respiratory rate normal; clear to auscultation. ABDOMEN: Soft, mild tenderness, no guarding rigidity, liver spleen not palpable, no masses palpable. PSYCH: Alert and oriented x3; mood and affect normal. MUSCULOSKELETAL:No Clubbing/cyanosis;muscles-grossly intact NEUROLOGICAL: Cranial nerves grossly intact; no facial asymmetry, power and sensation grossly intact. LYMPHATICS: No lymph nodes palpable in the axilla and neck INVESTIGATIONS, reviewed in the clinical context: White count 7.9 hemoglobin 12 platelets 291 potassium 2.8 BUN 38 creatinine 0.58 Computed tomography scan abdomen and pelvis with contrast: Extensive colonic diverticulosis without diverticulitis. Assessment and plan: -Acute diverticulitis in a patient who had an episode on January 08 admitted for same in [facility]. Patient did receive a 2 week course of Flagyl. Patient had some symptoms on and off. And some progressive abdominal pain. Bowel pattern has been irregular. Now presents with some chills. Increasing abdominal pain. Computed tomography scan currently not too dramatic. No white count. IV Levaquin. Liquid diet. Bentyl. -GERD Pepcid when necessary -Hyperlipidemia Rosuvastatin -Rheumatoid arthritis Methotrexate -Severe hypokalemia Replace potassium Liquid diet. Bentyl. DC morphine. Resume home medications. Hold Flagyl. Discussed with patient has been. Surgery consulted. Past Medical History Past Medical History: GERD/Reflux, Hyperlipidemia, Rheumatoid Arthritis (RA) Additional Past Medical History / Comment(s): kidney stones, diverticulitis History of Any Multi-Drug Resistant Organisms: None Reported Past Surgical History: Cholecystectomy, Orthopedic Surgery Additional Past Surgical History / Comment(s): rt elbow with pins Past Anesthesia/Blood Transfusion Reactions: Motion Sickness, Postoperative Nausea & Vomiting (PONV) Additional Past Anesthesia/Blood Transfusion Reaction / Comment(s): nauseous after colonoscopies Past Psychological History: No Psychological Hx Reported Smoking Status: Former smoker Past Alcohol Use History: None Reported Past Drug Use History: None Reported - Past Family History Mother Family Medical History: No Reported History Medications and Allergies Home Medications Medication Instructions Recorded Confirmed Type Hydroxychloroquine Sulfate 200 mg PO BID 03/02/21 02/04/22 History [Plaquenil] Rosuvastatin Calcium 5 mg PO HS 03/02/21 02/04/22 History metHOTREXate sodium [Methotrexate] 15 mg PO MO 03/02/21 02/04/22 History Ondansetron Odt [Zofran Odt] 4 mg PO Q8HR PRN #20 tab 01/19/22 02/04/22 Rx Ibuprofen [Motrin Ib] 400 mg PO Q8H PRN 02/04/22 02/04/22 History hydroCHLOROthiazide [Hydrodiuril] 25 mg PO DAILY 02/04/22 02/04/22 History metroNIDAZOLE [Flagyl] 500 mg PO TID 02/04/22 02/04/22 History Allergies Allergy/AdvReac Type Severity Reaction Status Date / Time Penicillins Allergy Rash/Hives Verified 02/04/22 13:24 Physical Exam Vitals: Vital Signs Temp Pulse Pulse Resp BP BP Pulse Ox 02/04/22 08:35 98 F 78 16 110/70 97 02/04/22 08:00 97.6 F 106 H 16 153/77 96 02/04/22 06:32 98.9 F 85 14 107/55 94 L 02/04/22 03:21 84 16 124/65 97 02/04/22 02:10 16 129/65 02/03/22 23:37 97.6 F 98 18 118/70 98 Intake and Output 02/03/22 02/04/22 02/04/22 22:59 06:59 14:59 Other: Weight 56.699 kg Results CBC & Chem 7: 02/04/22 01:27 02/04/22 01:27 Labs: Abnormal Lab Results - Last 24 Hours (Table) 02/04/22 02/04/22 02/04/22 Range/Units 01:27 01:27 02:15 RBC 3.74 L (3.80-5.40) m/uL Sodium 132 L (137-145) mmol/L Potassium 2.8 L (3.5-5.1) mmol/L BUN 38 H (7-17) mg/dL Glucose 118 H (74-99) mg/dL ALT 37 H (4-34) U/L Total Protein 5.6 L (6.3-8.2) g/dL Albumin 3.4 L (3.5-5.0) g/dL Ur Leukocyte Esterase Small H (Negative) Hyaline Casts 3 H (0-2) /lpf Urine Mucus Rare H (None) /hpf
[2022-02-04] MEDS ORDERED: ATORVASTATIN 10 MG TAB PO SCH (21:00)
[2022-02-04] MEDS: DICYCLOMINE 20 MG TAB PO SCH (21:12)
[2022-02-05] MEDS: LACTATED RINGERS 1,000 ML IV SCH ×2 (01:49→09:16)
[2022-02-05] MEDS: KETOROLAC 15 MG/ML 1 ML VIAL IVP SCH ×2 (06:12→11:36)
[2022-02-05] MEDS: FAMOTIDINE 20 MG TAB PO SCH (09:14)
[2022-02-05] MEDS: HYDROXYCHLOROQUINE SULFATE 200 MG TAB PO SCH (09:14)
[2022-02-05] MEDS: DICYCLOMINE 20 MG TAB PO SCH ×2 (09:14→12:23)
[2022-02-05] MEDS: PANTOPRAZOLE 40 MG TABLET PO SCH (09:15)
--- NOTE | 2022-02-05 10:15 | P.PN ---
Subjective Progress Note Date: 02/05/22 Principal diagnosis: Diverticulitis Patient says she feels well today. Denies pain. Tolerating liquid diet. She would like to go home today. No bowel movement. Objective - Vital Signs Vital signs: Vital Signs Temp 98.5 F 02/05/22 07:58 Pulse 78 02/05/22 07:58 Resp 17 02/05/22 07:58 BP 93/49 02/05/22 07:58 Pulse Ox 92 L 02/05/22 07:58 FiO2 Intake & Output 02/04/22 02/05/22 02/05/22 18:59 06:59 18:59 Intake Total 1180 1200 360 Balance 1180 1200 360 Weight 56.699 kg Intake: Intake, IV Titration 600 1200 Amount Lactated Ringers 1,000 ml 200 1200 @ 100 mls/hr IV .Q10H [facility] Rx#:[id number] Levofloxacin 500Mg-D5w 100 Pmx 500 mg In Dextrose/ Water 1 100ml.bag @ 100 mls/hr IVPB Q24H [facility]MAN Rx#: [id number] Sodium Chloride 0.9% 1, 300 000 ml @ 75 mls/hr IV . [id number] [facility]MAN Rx#:[id number] Oral 580 360 Other: Voiding Method Toilet Toilet # Voids 3 - Exam Abdomen: Soft, nontender, nondistended - Labs CBC & Chem 7: 02/04/22 01:27 02/04/22 01:27 Assessment and Plan (1) Diverticulitis Narrative/Plan: Patient doing well today. Surgical point of view the patient's CAT scan is stable. Would consider 1 week of oral antibiotics postdischarge. May discharge from our standpoint. Current Visit: No Status: Acute Code(s): K57.92 - DVTRCLI OF INTEST, PART UNSP, W/O PERF OR ABSCESS W/O BLEED SNOMED Code(s): 041534840
[2022-02-05] MEDS: LEVOFLOXACIN 500MG-D5W PMX 500 MG in DEXTROSE/WATER 1 100ML.BAG IVPB SCH (11:20)
[2022-02-05 13:15] LABS: Basophils # (A) 0.1 k/uL (0-0.2); Basophils % (A) 1 %; Eosinophils # (A) 0.1 k/uL (0-0.7); Eosinophils % (A) 1 %; HCT 38.2 % (34.0-46.0); HGB 12.5 gm/dL (11.4-16.0); Lymphocytes # (A) 1.3 k/uL (1.0-4.8); Lymphocytes % (A) 21 %; MCH 32.2 pg (25.0-35.0); MCHC 32.6 g/dL (31.0-37.0); MCV 98.9 fL (80.0-100.0); Macrocytosis Slight; Mean Platelet Volume 7.1; Monocytes # (A) 0.6 k/uL (0-1.0); Monocytes % (A) 9 %; Neutrophils # (A) 4.3 k/uL (1.3-7.7); Neutrophils % (A) 66 %; Platelet Count 259 k/uL (150-450); RBC 3.86 m/uL (3.80-5.40); RDW 14.7 % (11.5-15.5); WBC 6.5 k/uL (3.8-10.6)
[2022-02-05 13:33] LABS: ALT 36 U/L (4-34); AST 50 U/L (14-36); African American GFR (CKD) >90 (>60 ml/min/1.73 sqM); Albumin 3.2 g/dL (3.5-5.0); Albumin/Globulin Ratio 1.5; Alkaline Phosphatase 40 U/L (38-126); Anion Gap 3 mmol/L; Blood Urea Nitrogen 16 mg/dL (7-17); Calcium 8.3 mg/dL (8.4-10.2); Carbon Dioxide 27 mmol/L (22-30); Chloride 104 mmol/L (98-107); Globulin 2.2 g/dL; Glucose 128 mg/dL (74-99); Non-African American GFR(CKD) >90 (>60 ml/min/1.73 sqM); Potassium 4.1 mmol/L (3.5-5.1); Sodium 134 mmol/L (137-145); Total Bilirubin 0.3 mg/dL (0.2-1.3); Total Protein 5.4 g/dL (6.3-8.2)
[2022-02-05 14:12] VITALS: BP 102/63; PULSE 89; RESP 16; TEMP 97.7
--- NOTE | 2022-02-05 18:48 | P.DS ---
Providers Date of admission: 02/04/22 05:12 Expected date of discharge: 02/05/22 Attending physician: Gabriele Oconnor Consults: 02/04/22 06:56 Consult Physician Routine Consulting Provider: Jacob Sandy Consult Reason/Comments: abdominal pain Do you want consulting provider notified?: Yes Primary care physician: Bruno Fry [facility] Course: Chief Complaint: Abdominal pain This is a very pleasant 72-year-old patient, she and her are visiting here from [place]. . In January 08 patient was admitted to the local hospital in [place] with acute diabetic colitis. For 2 days. Was discharged in 2 weeks of Flagyl. Symptoms did improve but not fully. Patient has continued to have some abdominal pain. Bowel movements have been irregular. Patient started having increasing abdominal pain. Chills. Tired rundown. Decided to come in. Computed tomography scan was unremarkable. Patient was started on IV Levaquin. Surgery was consulted. Placed on clear liquid diet. Patient is accompanied by her . No prior history of diverticulitis. February 05: Patient been cleared by Dr. Lancaster for discharge. Discussed with the patient. Diet discussed. We did 1 week of Levaquin. Several questions were answered. Bentyl when necessary. Discussion and discharge planning more than 35 minutes Past medical history to include: GERD, hyperlipidemia, rheumatoid arthritis, kidney stones, diverticulitis Social history: . No alcohol. Smoking and occasionally. CBD was sometimes Family history: Reviewed, noncontributory to presentation Physical examination: VITAL SIGNS: 97.7, 89, 16, 1 or 2 x 63, 99% room air GENERAL: Laying in bed, comfortable EYES: Pupils equal. Conjunctiva normal. HEENT: External appearance of nose and ears normal, oral cavity grossly normal. NECK: JVD not raised; masses not palpable. HEART: First and second heart sounds are normal; no edema. LUNGS: Respiratory rate normal; clear to auscultation. ABDOMEN: Soft, mild tenderness, no guarding rigidity, liver spleen not palpable, no masses palpable. PSYCH: Alert and oriented x3; mood and affect normal. MUSCULOSKELETAL:No Clubbing/cyanosis;muscles-grossly intact INVESTIGATIONS, reviewed in the clinical context: February 05: Potassium 4.1 White count 7.9 hemoglobin 12 platelets 291 potassium 2.8 BUN 38 creatinine 0.58 Computed tomography scan abdomen and pelvis with contrast: Extensive colonic diverticulosis without diverticulitis. Assessment and plan: -Acute diverticulitis in a patient who had an episode on January 08 admitted for same in [facility]. Patient did receive a 2 week course of Flagyl. Patient had some symptoms on and off. And some progressive abdominal pain. Bowel pattern has been irregular. Now presents with some chills. Increasing abdominal pain. Computed tomography scan currently not too dramatic. No white count. IV Levaquin. Liquid diet. Bentyl. Discharged home on 7 days on Levaquin. Soft bland diet. -GERD Pepcid when necessary -Hyperlipidemia Rosuvastatin -Rheumatoid arthritis Methotrexate -Severe hypokalemia Replace potassium Disposition: Home Plan - Discharge Summary Discharge Rx Participant: No New Discharge Prescriptions: New Acetaminophen Tab [Tylenol] 650 mg PO Q6HR PRN #30 tab PRN Reason: Mild Pain Or Fever > 100.5 Levofloxacin [Levaquin] 750 mg PO DAILY #7 tab Dicyclomine [Bentyl] 20 mg PO TID PRN #20 tab PRN Reason: Pain Famotidine [Pepcid] 20 mg PO BID #60 tab Continue metHOTREXate sodium [Methotrexate] 15 mg PO MO Rosuvastatin Calcium 5 mg PO HS hydroCHLOROthiazide [Hydrodiuril] 25 mg PO DAILY Ibuprofen [Motrin Ib] 400 mg PO Q8H PRN PRN Reason: Pain Or Fever > 100.5 Hydroxychloroquine Sulfate [Plaquenil] 200 mg PO BID Ondansetron Odt [Zofran ODT] 4 mg PO Q8HR PRN #20 tab PRN Reason: Nausea And Vomiting Discontinued metroNIDAZOLE [Flagyl] 500 mg PO TID Discharge Medication List Hydroxychloroquine Sulfate [Plaquenil] 200 mg PO BID 03/02/21 [History] Rosuvastatin Calcium 5 mg PO HS 03/02/21 [History] metHOTREXate sodium [Methotrexate] 15 mg PO MO 03/02/21 [History] Ondansetron Odt [Zofran ODT] 4 mg PO Q8HR PRN #20 tab 01/19/22 [Rx] Ibuprofen [Motrin Ib] 400 mg PO Q8H PRN 02/04/22 [History] hydroCHLOROthiazide [Hydrodiuril] 25 mg PO DAILY 02/04/22 [History] Acetaminophen Tab [Tylenol] 650 mg PO Q6HR PRN #30 tab 02/05/22 [Rx] Dicyclomine [Bentyl] 20 mg PO TID PRN #20 tab 02/05/22 [Rx] Famotidine [Pepcid] 20 mg PO BID #60 tab 02/05/22 [Rx] Levofloxacin [Levaquin] 750 mg PO DAILY #7 tab 02/05/22 [Rx] Follow up Appointment(s)/Referral(s): Jacob Sandy MD [Medical Doctor] - As Needed Bruno Fry MD [Primary Care Provider] - 1-2 days (office closed at time of discharge. Please call to schedule appointment) Discharge Disposition: HOME SELF-CARE
[2022-02-06] MEDS ORDERED: metHOTREXate sodium 2.5 MG TAB PO SCH (09:00)
== END 2022-02-05 16:12 | disposition home or self-care (01) ==
LOC: EC 22:46 → 4SSUR 02-04 05:12
PROVIDERS: ADMIT Hospitalist; ATTEND Hospitalist
DX: R10.31 Right lower quadrant pain (principal); E87.6 Hypokalemia; K21.9 Gastro-esophageal reflux disease without esophagitis; E78.5 Hyperlipidemia, unspecified; M06.9 Rheumatoid arthritis, unspecified; K44.9 Diaphragmatic hernia without obstruction or gangrene; K57.30 Diverticulosis of large intestine without perforation or abscess without bleeding; Z88.0 Allergy status to penicillin; Z79.899 Other long term (current) drug therapy; Z90.49 Acquired absence of other specified parts of digestive tract; Z87.891 Personal history of nicotine dependence
CPT/HCPCS: 96376 ×3; 96361 ×2; 96365; 96366; 96375 ×2; 99285; 36415; 80053 ×2; 82150; 83605; 83690; 84484; 85025 ×2; 81001; 74177; G0378 ×2; J2270; J2405; J1956 ×2; J1885 ×2; Q9967

== ENCOUNTER → 2022-02-13 | Outpatient (CLI) | payer MEDICARE, BC ==
[2022-02-13 19:31] LABS: Albumin 4.1 g/dL (3.8-4.9); Albumin/Globulin Ratio 2.03 (1.60-3.17); Anion Gap 13.2 mmol/L (10.00-18.00); BUN/Creat Ratio 25.11 Ratio (12.00-20.00); Blood Urea Nitrogen 23.4 mg/dL (9.0-27.0); Calcium 9.3 mg/dL (8.7-10.3); Carbon Dioxide 26.2 mmol/L (20.0-27.5); Non-African American GFR(CKD) 61.2 (60.0-200.0); Potassium 3.4 mmol/L (3.5-5.5); Total Bilirubin 0.3 mg/dL (0.30-1.20); Total Protein 6.2 g/dL (6.2-8.2)
[2022-02-13 19:51] LABS: Eosinophils # (A) 0 X 10*3/uL (0.04-0.35); Eosinophils % (A) 0 %; HCT 40.4 % (37.2-46.3); HGB 13.6 g/dL (12.0-15.0); Immature Grans, Automated 2.8 %; Lymphocytes # (A) 1.56 X 10*3/uL (0.90-5.00); Lymphocytes % (A) 15.9 %; MCH 32.2 pg (27.0-32.0); MCHC 33.7 g/dL (32.0-37.0); MCV 95.7 fL (80.0-97.0); Mean Platelet Volume 9.6 fL (9.5-12.2); Monocytes # (A) 1.32 X 10*3/uL (0.20-1.00); Monocytes % (A) 13.4 %; NRBC Per 100 WBC 0 /100 WBCS (0.0-0.0); Neutrophils # (A) 6.58 X 10*3/uL (1.80-7.70); Neutrophils % (A) 66.9 %; Platelet Count 287 X 10*3/uL (140-440); RBC 4.22 X 10*6/uL (4.10-5.20); RDW 14.6 % (11.5-14.5); WBC 9.84 X 10*3/uL (4.50-10.00)
== END | disposition home or self-care (01) ==
LOC: LABWHC1 10:13
PROVIDERS: ATTEND Internal Medicine
DX: R53.1 Weakness (principal); R73.9 Hyperglycemia, unspecified; K57.92 Diverticulitis of intestine, part unspecified, without perforation or abscess without bleeding
CPT/HCPCS: 36415; 80053; 83036; 85025